=== PATIENT | female | born 1970 | race Caucasian/White ===

== ENCOUNTER 2017-05-25 09:40 | Emergency (ER) | payer MEDICAID ==
[~2017-05-25] VITALS: Ht 160 cm; Wt 72.0 kg
[2017-05-25 09:42] VITALS: Ht 160 cm; Wt 72.0 kg
--- NOTE | 2017-05-25 10:21 | ERD ---
ER Documentation Chief Complaint Date/Time DATE: 05/25/17 TIME: 10:18 Chief Complaint rectal bleeding x 4 days HPI This 46-year-old female presents emergency department today complaining of rectal bleeding and blood in her stool for the past 4 days. She is also complaining of some back pain and pain into her leg. States she is constipated. Denies any fevers or chills, loss of bowel or bladder control. ROS All systems reviewed and are negative except as per history of present illness. Medications Home Meds Active Scripts Hydrocortisone Acetate (Anusol-Hc) 25 Mg Supp.rect, 1 SUPP RI BID Y for HEMORROID PAIN/ITCHING, #15 SUPP.RECT Prov:PRESTON CLARKE PA-C 05/25/17 Polyethylene Glycol* (Miralax*) 17 Gm Powd.pack, 17 GM PO DAILY, #30 Prov:PRESTON CLARKE PA-C 05/25/17 Docusate Sodium* (Colace*) 100 Mg Capsule, 100 MG PO TID, #30 CAP Prov:PRESTON CLARKE PA-C 05/25/17 Acetaminophen* (Tylophen*) 500 Mg Capsule, 1 CAP PO Q6H Y for PAIN AND OR ELEVATED TEMP, #30 CAP Prov:PRESTON CLARKE PA-C 05/25/17 Ibuprofen* (Motrin*) 600 Mg Tab, 600 MG PO Q6, #30 TAB Prov:PRESTON CLARKE PA-C 05/25/17 Allergies Allergies: Coded Allergies: No Known Allergy (Unverified , 05/25/17) PMhx/Soc Medical and Surgical Hx: pt denies Medical Hx, pt denies Surgical Hx Hx Alcohol Use: No Hx Substance Use: No Hx Tobacco Use: No Smoking Status: Never smoker Physical Exam Vitals Vital Signs Date Time Temp Pulse Resp B/P Pulse Ox O2 Delivery O2 Flow Rate FiO2 05/25/17 09:42 98.2 79 19 151/70 98 Physical Exam Const: Obese, no acute distress Head: Atraumatic Eyes: Normal Conjunctiva ENT: Normal External Ears, Nose and Mouth. Neck: Full range of motion..~ No meningismus. Resp: Clear to auscultation bilaterally Cardio: Regular rate and rhythm, no murmurs Abd: Soft, mild diffuse pain non distended. Normal bowel sounds no specific tenderness McBurney's or right upper quadrant Skin: No petechiae or rashes Back: Lumbar spine no midline tenderness. Bilateral paraspinal tenderness. Mild tenderness sacrum. Pulses 2+. Distal neurovascularly intact Ext: No cyanosis, or edema Neur: Awake and alert Psych: Normal Mood and Affect Result Diagram: 05/25/17 1104 Results 24 hrs Laboratory Tests Test 05/25/17 10:10 05/25/17 11:04 05/25/17 11:13 Stool Occult Blood NEGATIVE White Blood Count 5.810^3/ul Red Blood Count 4.5110^6/ul Hemoglobin 13.3g/dl Hematocrit 39.7% Mean Corpuscular Volume 88.0fl Mean Corpuscular Hemoglobin 29.5pg Mean Corpuscular Hemoglobin Concent 33.5g/dl Red Cell Distribution Width 14.2% Platelet Count 30504^3/UL Mean Platelet Volume 10.4fl Neutrophils % 62.8% Lymphocytes % 27.1% Monocytes % 7.8% Eosinophils % 1.6% Basophils % 0.5% Nucleated Red Blood Cells % 0.0/100WBC Neutrophils # 3.610^3/ul Lymphocytes # 1.610^3/ul Monocytes # 0.510^3/ul Eosinophils # 0.110^3/ul Basophils # 0.010^3/ul Nucleated Red Blood Cells # 0.010^3/ul Bedside Urine pH (LAB) 7.0 Bedside Urine Protein (LAB) Negative Bedside Urine Glucose (UA) Negative Bedside Urine Ketones (LAB) Negative Bedside Urine Blood Trace-lysed Bedside Urine Nitrite (LAB) Negative Bedside Urine Leukocyte Esterase (L Negative Procedures/MDM This 46-year-old female who presents to the emergency department today with rectal bleeding and back pain. Patient's primary complaint was the blood in her stool and the rectal bleeding. On physical exam patient does have evidence of an external hemorrhoid. Patient had placed cream there although did not admit to having hemorrhoids. Patient had nonspecific abdominal pain on physical exam and does admit to having constipation. Her back pain was also nonspecific. I did obtain laboratory work as well as a occult stool and UA CBC shows no elevated white blood cell count. She is not anemic. Platelets are within normal limits. Occult stool is negative UA is negative for infection Urine test is negative Patient symptoms at this time is consistent with rectal bleeding that is stable. Patient has a negative occult stool. Her rectal bleeding likely caused by external hemorrhoids. I have explained this to the patient. I also explained her that she should follow-up with her primary care doctor for referral to GI specialist and possible colonoscopy as well. Patient understood Patient's back pain likely musculoskeletal given the location of her pain. I have low suspicion for urinary tract infection, pyelonephritis or nephrolithiasis as cause of patient's back pain. Patient will be given a prescription for Tylenol, Motrin, Colace and MiraLAX and Anusol. At this time the patient is stable for discharge and outpatient management. Patient should follow up with their PCP in the next 1-2 days. They may return to the emergency department sooner for any persistent or worsening of symptoms. Patient understood and agreed with the plan. Departure Diagnosis: Primary Impression: Rectal bleeding Additional Impression: Back pain Back pain location: low back pain Chronicity: acute Back pain laterality: bilateral Sciatica presence: with sciatica Sciatica laterality: sciatica of left side Qualified Code: M54.42 - Acute bilateral low back pain with left- sided sciatica Condition: PRESTON Trujillo PA-C May 25, 2017 10:21
[2017-05-25 11:07] LABS: URINE BLOOD (Dip) POC Trace-lysed (NEGATIVE)
[2017-05-25 11:31] LABS: BASOPHILS % 0.5 % (0.0-2.0); EOSINOPHILS # 0.1 10^3/ul (0.0-0.5); EOSINOPHILS % 1.6 % (0.0-7.0); HEMATOCRIT 39.7 % (37.0-47.0); HEMOGLOBIN 13.3 g/dl (12.0-16.0); LYMPHOCYTES # 1.6 10^3/ul (0.8-2.9); LYMPHOCYTES % 27.1 % (15.0-51.0); MEAN CORPUSCULAR HEMOGLOBIN 29.5 pg (29.0-33.0); MEAN CORPUSCULAR HGB CONC 33.5 g/dl (32.0-37.0); MEAN PLATELET VOLUME 10.4 fl (7.4-10.4); MONOCYTE # 0.5 10^3/ul (0.3-0.9); MONOCYTES % 7.8 % (0.0-11.0); NEUTROPHIL # 3.6 10^3/ul (1.6-7.5); NEUTROPHILS % 62.8 % (39.0-77.0); PLATELET COUNT 251 10^3/UL (140-415); RED BLOOD COUNT 4.51 10^6/ul (4.20-5.40); RED CELL DISTRIBUTION WIDTH 14.2 % (11.5-14.5); WHITE BLOOD COUNT 5.8 10^3/ul (4.8-10.8)
[2017-05-25] MEDS ORDERED: IBUP-1542 PO (11:57)
[2017-05-25] MEDS ORDERED: ACET500C5 PO (11:57)
[2017-05-25] MEDS ORDERED: DOCU-144 PO (11:57)
[2017-05-25] MEDS ORDERED: HYDR25SU23 PR (11:58)
[2017-05-25] MEDS ORDERED: POLY17PO6 PO (11:58)
[2017-05-25 12:18] VITALS: BP 142/74; PULSE 74; RESP 16; TEMP 98.2
== END 2017-05-25 12:20 | disposition home or self-care (01) ==
LOC: FTE 09:40
DX: K62.5 Hemorrhage of anus and rectum (principal); M54.42 Lumbago with sciatica, left side
CPT/HCPCS: 81003; 82270; 85025; 99283